=== PATIENT | female | born 1930 | race Caucasian/White ===

== ENCOUNTER 2017-06-14 00:24 | Emergency (ER) | payer MEDICARE ==
[~2017-06-14] VITALS: Ht 167.6 cm; Wt 72.1 kg
--- NOTE | 2017-06-14 00:40 | NUR ---
To bed 3 an 86 yo female patient bibra c/o nausea/vomiting and diarrhea x4days. vss. nad noted. nondiaphoretic. gowned. comfort measures rendered.
[2017-06-14] MEDS ORDERED: IV NS 0.9% 500 ML BAG IV ONE (01:30)
[2017-06-14] MEDS ORDERED: ONDANSETRON HCL/PF 4 MG/2 ML VIAL IVP ONE (01:30)
[2017-06-14 01:36] LABS: BASOPHILS % (AUTO) 0.2 % (0.0-2.0); EOSINOPHILS # (AUTO) 0.1 /CMM (0.0-0.7); EOSINOPHILS % (AUTO) 1.2 % (0.0-6.0); HEMATOCRIT 45 % (33-45); HEMOGLOBIN 15.1 g/dL (11.5-14.8); LYMPHOCYTES # (AUTO) 3.7 /CMM (0.8-4.8); LYMPHOCYTES % (AUTO) 30.3 % (20.0-44.0); MEAN CORPUSCULAR HEMOGLOBIN 31 PG (26.0-33.0); MEAN CORPUSCULAR HGB CONC 33 g/dl (31.0-36.0); MEAN CORPUSCULAR VOLUME 93 fL (82-100); MONOCYTES # (AUTO) 0.6 /CMM (0.1-1.30); MONOCYTES % (AUTO) 5.2 % (2.0-12.0); NEUTROPHILS # (AUTO) 7.6 /CMM (1.8-8.9); NEUTROPHILS % (AUTO) 63.1 % (43.0-81.0); PLATELET COUNT (AUTO) 204 /CMM (150-450); RDW COEFFICIENT OF VARIATION 12.9 (11.5-15.0); RED BLOOD CELL COUNT(AUTO) 4.87 MIL/uL (4.0-5.2); WHITE BLOOD COUNT (AUTO) 12.1 K/uL (4.3-11.0)
[2017-06-14] MEDS ORDERED: ONDANSETRON HCL/PF 4 MG/2 ML VIAL ONE ×3 (01:39→05:06)
--- NOTE | 2017-06-14 01:40 | NUR ---
started a saline lock on the right hand g18, blood drawn and sent to lab.
--- NOTE | 2017-06-14 01:43 | NUR ---
medicated patient as ordered by Dr Patel.
[2017-06-14 01:45] LABS: CARBON DIOXIDE 27 mmol/L (21-32); CHLORIDE 99 mmol/L (98-107); CREATININE 0.7 mg/dL (0.6-1.3); GLUCOSE 253 mg/dL (74-106); POTASSIUM 3.6 mmol/L (3.5-5.1); SODIUM SERUM 136 mmol/L (136-145); UREA NITROGEN, BLOOD 22 mg/dL (7-18)
[2017-06-14 01:48] LABS: INR 1.06 (0.87-1.13)
[2017-06-14 01:51] LABS: ALANINE AMINOTRANSFERASE 101 U/L (12-78); ALBUMIN 3.7 g/dL (3.4-5.0); ALKALINE PHOSPHATASE 87 U/L (46-116); ASPARTATE AMINOTRANSFERASE 63 U/L (15-37); BILIRUBIN,DIRECT 0.2 mg/dL (0.0-0.2); BILIRUBIN,TOTAL 0.6 mg/dL (0.2-1.0); LIPASE 103 U/L (73-393); TOTAL PROTEIN, SERUM 8.5 g/dL (6.4-8.2)
[2017-06-14 01:53] LABS: TROPONIN I < 0.017 ng/mL (0.00-0.056)
[2017-06-14 03:24] LABS: APPEARANCE,URINE CLOUDY (CLEAR); BILIRUBIN,URINE NEGATIVE (NEGATIVE); BLOOD, URINE 1+ Ery/uL (NEGATIVE); COLOR,URINE DARK YELLO (YELLOW); KETONES,URINE 1+ (NEGATIVE); LEUKOCYTE ESTERASE ,URINE 2+ (NEGATIVE); NITRITE, URINE POSITIVE (NEGATIVE); PROTEIN,URINE TRACE mg/dl (NEGATIVE); UGLUCOSE NEGATIVE (NEGATIVE)
[2017-06-14] MEDS ORDERED: MORPHINE SULFATE INJ 4 MG/ML DISP.SYRIN ONE (03:26)
[2017-06-14 03:28] LABS: BACTERIA,URINE Moderate /HPF (None Seen)
[2017-06-14 03:29] LABS: SQUAMOUS EPITHELIAL CELL,UR Moderate /HPF (None Seen); WBC,URINE 21-50 /HPF (0-3)
[2017-06-14] MEDS ORDERED: ONDANSETRON HCL/PF 4 MG/2 ML VIAL IV ONE ×2 (03:30→05:30)
[2017-06-14] MEDS ORDERED: MORPHINE SULFATE INJ 2 MG/ML DISP.SYRIN IV ONE (03:30)
--- NOTE | 2017-06-14 04:31 | NUR ---
ongoing luis alfredo at bedside.
--- NOTE | 2017-06-14 05:10 | NUR ---
3rd zofran 4mg ivp given and started 500cc ns bolus per Dr Patel's verbal orders. will monitor.
--- NOTE | 2017-06-14 05:13 | NUR ---
MD OTERO PAGED FOR PANEL CALL
--- NOTE | 2017-06-14 05:21 | NUR ---
MED SURG 325-2
[2017-06-14] MEDS ORDERED: METF850T2 PO (05:30)
[2017-06-14] MEDS ORDERED: IV NS 0.9% 1,000 ML BAG IV ONE (05:30)
--- NOTE | 2017-06-14 05:42 | NUR ---
Report given to Akilah MOSS for admission and jose.
[2017-06-14] MEDS ORDERED: CEFTRIAXONE 1GM BAG (ER ONLY) 50 ML IV ONE (06:09)
[2017-06-14] MEDS ORDERED: CEFTRIAXONE 1GM BAG (ER ONLY) 1 GM/50 ML PIGGYBACK IV ONE (06:30)
--- NOTE | 2017-06-14 07:45 | NUR ---
Patient discharged to home in stable condition. Written and verbal after care instructions given. Patient verbalizes understanding of instruction.
--- NOTE | 2017-06-14 07:45 | NUR ---
IV removed. Catheter intact and site benign. Pressure and 4x4 applied to site. No bleeding noted.
[2017-06-14 07:46] VITALS: BP 123/75
== END 2017-06-14 07:48 | disposition home or self-care (01) ==
LOC: ER 00:25 → MED 05:36 → UNDOADMIN 05:36
DX: K52.9 Noninfective gastroenteritis and colitis, unspecified (principal); E86.0 Dehydration; N39.0 Urinary tract infection, site not specified; R11.2 Nausea with vomiting, unspecified; E11.9 Type 2 diabetes mellitus without complications
CPT/HCPCS: 36415; 74176; 76705; 80048; 80076; 81001; 83690; 84484; 85025; 85730; 87077; 87081; 87086; 87186 ×2; 93005; 96365; 96366; 96375; 96376; 99285; A4606; J0696 ×2; J2270; J2405 ×3; J7040 ×2; 81000-TC; Z7610

== ENCOUNTER 2017-07-15 06:33 | Emergency (ER) | payer MEDICARE, OTHER ==
[~2017-07-15] VITALS: Ht 154.9 cm; Wt 68.0 kg
[~2017-07-15 06:33] MED LIST: METF850T2 PO
--- NOTE | 2017-07-15 06:45 | NUR ---
TO BED 1 AMBULATORY C/O HEADACHE, INTERMITTENT NOSE BLEED X1 WEEK. PT DENIES TRAUMA. PT AAOX4 NO ACUTE DISTRESS NOTED, RESP EVEN AND UNLABORED. PENDING ER MD CHASE.
--- NOTE | 2017-07-15 06:47 | NUR ---
AZEEM WONG AT BEDSIDE TO SALVATORE BOWDEN.
--- NOTE | 2017-07-15 06:59 | NUR ---
RADIOLOGY NOTIFIED FOR CT
--- NOTE | 2017-07-15 07:01 | NUR ---
PACKER OPERATOR AUTOMATIC AT BEDSIDE FOR BLOOD DRAW.
[2017-07-15 07:16] LABS: BASOPHILS % (AUTO) 0.5 % (0.0-2.0); EOSINOPHILS # (AUTO) 0.2 /CMM (0.0-0.7); EOSINOPHILS % (AUTO) 2.4 % (0.0-6.0); HEMATOCRIT 36 % (33-45); HEMOGLOBIN 12.3 g/dL (11.5-14.8); LYMPHOCYTES # (AUTO) 3.8 /CMM (0.8-4.8); LYMPHOCYTES % (AUTO) 53.6 % (20.0-44.0); MEAN CORPUSCULAR HEMOGLOBIN 32 PG (26.0-33.0); MEAN CORPUSCULAR HGB CONC 34 g/dl (31.0-36.0); MEAN CORPUSCULAR VOLUME 93 fL (82-100); MONOCYTES # (AUTO) 0.4 /CMM (0.1-1.30); NEUTROPHILS # (AUTO) 2.6 /CMM (1.8-8.9); NEUTROPHILS % (AUTO) 37.5 % (43.0-81.0); PLATELET COUNT (AUTO) 184 /CMM (150-450); RDW COEFFICIENT OF VARIATION 13.4 (11.5-15.0); RED BLOOD CELL COUNT(AUTO) 3.85 MIL/uL (4.0-5.2)
[2017-07-15 07:33] LABS: INR 1.03 (0.87-1.13)
[2017-07-15 07:34] LABS: CALCIUM, SERUM 8.9 mg/dL (8.5-10.1); CARBON DIOXIDE 27 mmol/L (21-32); CHLORIDE 101 mmol/L (98-107); CREATININE 0.5 mg/dL (0.6-1.3); GLUCOSE 221 mg/dL (74-106); POTASSIUM 4.1 mmol/L (3.5-5.1); SODIUM SERUM 137 mmol/L (136-145); UREA NITROGEN, BLOOD 11 mg/dL (7-18)
--- NOTE | 2017-07-15 08:50 | NUR ---
Patient discharged to home with her son in stable condition. Written and verbal after care instructions given. Patient verbalizes understanding of instruction.
[2017-07-15 09:10] VITALS: BP 136/81
== END 2017-07-15 08:55 | disposition home or self-care (01) ==
LOC: ER 06:33
DX: R04.0 Epistaxis (principal); E11.9 Type 2 diabetes mellitus without complications
CPT/HCPCS: 36415; 70486-TC; 80048-TC; 85025-TC; 85730-TC; A4606; Z7610

== ENCOUNTER 2020-09-12 02:06 | Inpatient (IN) | payer MEDICARE, OTHER ==
[~2020-09-12] VITALS: Ht 154.9 cm; Wt 90.3 kg
[~2020-09-12 02:06] MED LIST changes: +METF-441 PO; -METF850T2 PO
--- NOTE | 2020-09-12 02:10 | NUR ---
PT MOSHE FROM HOME C/O BRIGHT RED RECTAL BLEEDING X 2 DAYS. PT AAOX4 ARMEANIAN SPEAKING. PT BREATHING EVENLY AND UNLABORED. PT SKIN WARM, DRY, AND INTACT. RT AC 20G INITIATED, BLOOD OBTAINED AND SENT TO LAB. PT ATTACHED TO MONITOR AND POX. PT GIVEN BLANKET AND CALLLIGHT WITHIN REACH
[2020-09-12] MEDS ORDERED: ONDANSETRON HCL/PF 4 MG/2 ML VIAL ONE (02:23)
[2020-09-12] MEDS ORDERED: PANTOPRAZOLE 40 MG VIAL ONE (02:23)
[2020-09-12] MEDS ORDERED: ONDANSETRON HCL/PF - ER 4 MG/2 ML VIAL IV ONE (02:30)
[2020-09-12] MEDS ORDERED: PANTOPRAZOLE 40 MG VIAL IV ONE (02:30)
--- NOTE | 2020-09-12 02:38 | NUR ---
PT TAKEN TO RADIOLOGY
[2020-09-12 02:40] LABS: BASOPHILS # (AUTO) 0.1 /CMM (0.0-0.2); BASOPHILS % (AUTO) 0.5 % (0.0-2.0); EOSINOPHILS % (AUTO) 1.7 % (0.0-6.0); HEMATOCRIT 39 % (33-45); HEMOGLOBIN 12.8 g/dL (11.5-14.8); LYMPHOCYTES # (AUTO) 4.2 /CMM (0.8-4.8); MEAN CORPUSCULAR HGB CONC 33 g/dl (31.0-36.0); MEAN CORPUSCULAR VOLUME 94 fL (82-100); MONOCYTES # (AUTO) 0.4 /CMM (0.1-1.30); MONOCYTES % (AUTO) 4.6 % (2.0-12.0); NEUTROPHILS # (AUTO) 4.7 /CMM (1.8-8.9); NEUTROPHILS % (AUTO) 49.2 % (43.0-81.0); PLATELET COUNT (AUTO) 212 /CMM (150-450); RED BLOOD CELL COUNT(AUTO) 4.09 MIL/uL (4.0-5.2); WHITE BLOOD COUNT (AUTO) 9.5 K/uL (4.3-11.0)
[2020-09-12 02:55] LABS: ALBUMIN 3.3 g/dL (3.4-5.0); BILIRUBIN,DIRECT 0.1 mg/dL (0.0-0.2); BILIRUBIN,TOTAL 0.2 mg/dL (0.2-1.0); CALCIUM, SERUM 9.5 mg/dL (8.5-10.1); CREATININE 0.7 mg/dL (0.6-1.3)
[2020-09-12] MEDS ORDERED: diphenhydrAMINE HCL 50 MG/ML VIAL IM ONE (03:30)
[2020-09-12] MEDS ORDERED: LORAZEPAM INJ 2 MG/ML VIAL IM ONE (03:30)
[2020-09-12] MEDS ORDERED: HALOPERIDOL LACTATE INJ 5 MG/ML VIAL IM ONE (03:30)
--- NOTE | 2020-09-12 04:30 | NUR ---
pt resting comfortably in bed with eyes closed. easily arousable
--- NOTE | 2020-09-12 05:40 | NUR ---
AZEEM WONG TALKING TO DR. GENTILE REGARDING PT ADMISSION.
--- NOTE | 2020-09-12 05:54 | NUR ---
mera landis [phone] cell [phone] work
--- NOTE | 2020-09-12 06:00 | NUR ---
covid swab sent to lab
--- NOTE | 2020-09-12 06:05 | NUR ---
called lab for covid swab pickling operator
[2020-09-12 06:25] VITALS: BP 139/67
[2020-09-12] MEDS ORDERED: FLAGYL/NS RTU 500 MG/100 ML PIGGYBACK IV ONE (06:30)
[2020-09-12] MEDS ORDERED: IV NS 0.9% 500 ML IV ONE (06:30)
[2020-09-12] MEDS ORDERED: PIPERACILLIN /TAZOBACTAM 3.375 G in IV D5W 50 ML IV ONE (06:30)
[2020-09-12] MEDS ORDERED: METRONIDAZOLE 500MG/ NS 100ML 100 ML IV ONE (06:40)
[2020-09-12] MEDS ORDERED: PIPERACILLIN /TAZOBACTAM 3.375 G VIAL IV ONE (06:40)
[2020-09-12] MEDS ORDERED: ONDANSETRON HCL/PF 4 MG/2 ML VIAL IVP PRN (07:00)
[2020-09-12] MEDS ORDERED: ACETAMINOPHEN 650 MG/SUPP.RECT RC PRN (07:00)
[2020-09-12] MEDS ORDERED: DEXTROSE 50%-WATER 50 ML DISP.SYRIN IV PRN (07:00)
[2020-09-12] MEDS ORDERED: MORPHINE SULFATE INJ 2 MG/ML DISP.SYRIN IV PRN (07:00)
[2020-09-12] MEDS ORDERED: INSULIN REGULAR, HUMAN 100 UNIT/ML 3 ML VIAL SQ PRN (07:00)
--- NOTE | 2020-09-12 07:00 | NUR ---
F/u on covid swab pickup
--- NOTE | 2020-09-12 07:05 | NUR ---
endorsed to ISA Flores for jose
[2020-09-12 07:31] LABS: B-TYPE NATRIURETIC PEPTIDE 167 PG/ML (0-125)
[2020-09-12] MEDS ORDERED: ZOLP5TAB8 PO (07:46)
[2020-09-12] MEDS ORDERED: LINA5TAB PO (07:46)
[2020-09-12] MEDS ORDERED: LOSA50TA39 PO (07:46)
[2020-09-12] MEDS ORDERED: BACL10TA PO (07:46)
[2020-09-12] MEDS ORDERED: GLIP1TAB6 PO (07:46)
[2020-09-12] MEDS ORDERED: CYCL30DR OP (07:46)
--- NOTE | 2020-09-12 07:57 | NUR ---
COVID NEGATIVE PER LAB REPORT.
--- NOTE | 2020-09-12 08:06 | NUR ---
REPORT GIVEN TO RICHARD MOSS.
--- NOTE | 2020-09-12 08:30 | NUR ---
ADMISSION NOTE RECEIVED PATIENT FROM ER. A/O X4. AMBULATORY. BREATHING IS NON-LABORED. PATIENT IS NPO. NO PAIN OR RESPIRATORY DISTRESS NOTED. IV @ RIGHT AC #20 - INTACT AND PATENT. PATIENT IS ADMIT FROM ER - SHE CAME FROM HOME C/O RECTAL BLEED. CALLED AMBULANCE HERSELF @ 0200. PATIENT VOIDED UPON GETTING INTO BED. STATES SHE IS HUNGRY - I EXPLAINED THAT SHE IS NPO AND CANNOT EAT ANYTHING UNTIL THE DOCTOR SEES HER. WILL CONTINUE TO MONITOR.
--- NOTE | 2020-09-12 08:32 | NUR ---
PATIENT TRANSFERRED TO ROOM 308 VIA ACLS PROTOCOL. NO DISTRESS NOTED.
[2020-09-12 08:39] LABS: IRON, SERUM 69 ug/dl (50-175); TOTAL IRON BINDING CAPACITY 341 ug/dl (250-450)
[2020-09-12] MEDS ORDERED: PANTOPRAZOLE 40 MG VIAL IV SCH (09:00)
--- NOTE | 2020-09-12 11:29 | NUR ---
DISCHARGE AMA NOTE PATIENT C/O HEADACHE AND WANTED TO EAT - I EXPLAINED TO HER THAT SHE IS NPO AND CANNOT EAT IF SHE HAS BLEEDING. SHE DID NOT WANT TO WAIT FOR THE DOCTOR AND DEMANDED FOOD. I CALLED HER SON, FERCHO, AND EXPLAINED THAT IT IS IMPORTANT SHE DOES NOT EAT AT THE MOMENT UNTIL THE DOCTOR SEES HER. PATIENT DID NOT WANT TO LISTEN TO EDUCATION AND WANTED TO LEAVE. SON WANTED HER TO EAT AND LEAVE WELL. PATIENT DECIDED TO AMA. IV REMOVED AND WRISTBAND REMOVED. PATIENT STABLE, A/O X4. PATIENT SIGNED AMA FORM AND LEFT WITH ALL BELONGINGS.
[2020-09-12] MEDS ORDERED: BLOOD SUGAR DIAGNOSTIC 1 EACH STRIP IN SCH (12:00)
[2020-09-12] MEDS ORDERED: PIPERACILLIN /TAZOBACTAM 3.375 G in IV D5W 100 ML IV SCH (12:00)
[2020-09-12] MEDS ORDERED: PIPERACILLIN /TAZOBACTAM 3.375 G in IV D5W 50 ML IV SCH (13:00)
== END 2020-09-12 11:30 | disposition left against medical advice (07) | DRG 378 ==
LOC: ER 02:10 → MED 08:08
PROVIDERS: ADMIT Student in an Organized Health Care Education/Training Program; ATTEND Student in an Organized Health Care Education/Training Program
DX: K92.2 Gastrointestinal hemorrhage, unspecified (principal); E44.1 Mild protein-calorie malnutrition; E87.1 Hypo-osmolality and hyponatremia; K57.32 Diverticulitis of large intestine without perforation or abscess without bleeding; E86.0 Dehydration; E11.65 Type 2 diabetes mellitus with hyperglycemia; Z20.822 Contact with and (suspected) exposure to COVID-19; Z79.84 Long term (current) use of oral hypoglycemic drugs; Z68.37 Body mass index [BMI] 37.0-37.9, adult; E86.1 Hypovolemia
CPT/HCPCS: 36415; 71045-TC; 80048-TC; 80076-TC; 82962-TC; 83540-TC; 83880; 84484-TC; 85025-TC; 86850-TC; 93307-TC; C9113; C9803; G0378; J1815; J2405; J2543; J7040; J7060